=== PATIENT | male | born 1980 | race Caucasian/White ===

== ENCOUNTER 2017-03-24 20:25 | Emergency (ER) | payer OTHER ==
[2017-03-24 20:41] VITALS: BP 137/80; PULSE 86; TEMP 98.2; BMI 29.0
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
== END 2017-03-24 21:31 | disposition home or self-care (01) ==
LOC: JERFT 20:25
DX: Z04.1 Encounter for examination and observation following transport accident (principal); V59.59XA Passenger in pick-up truck or van injured in collision with other motor vehicles in traffic accident, initial encounter; Y92.488 Other paved roadways as the place of occurrence of the external cause; Y93.89 Activity, other specified; Y99.8 Other external cause status
CPT/HCPCS: 99281-25